=== PATIENT | male | born 1950 | race Caucasian/White ===

== ENCOUNTER → 2020-12-04 | Outpatient (CLI) | payer MEDICARE ==
[~2020-12-04] MED LIST: RT-ALBUTEROL SULF 2.5 MG/3 ML PRE-MIX VIAL INH ONE; TRAM100T PO
--- NOTE | 2020-12-04 14:02 | Diagnostic Imaging Report ---
EXAMINATION: CT Lung Screening. INDICATION: 53 pack year smoking history, presents for low-dose baseline screening. TECHNIQUE: Noncontrast, low-dose CT imaging performed according to the lung cancer screening protocol. Auto Exposure Controls were utilize during the CT exam to meet ALARA standards for radiation dose reduction. COMPARISON: Baseline. FINDINGS: There is symmetrical hyperexpansion of the lungs and air trapping. There are paraseptal cyst and emphysematous changes bilaterally, most pronounced in the right greater than left upper lobes. There is trace curvilinear subsegmental atelectasis in the posterior sulcal left lower lobe. There are no findings of pneumonia or pulmonary edema. No suspicious lung mass or findings of lung cancer. There is some mild right apical curvilinear pleural parenchymal scarring. There is no adenopathy. The thoracic aorta is nonaneurysmal. There is no pleural or pericardial effusion. There is a tiny hiatal hernia. IMPRESSION: Air trapping and paraseptal emphysema with no CT findings of active lung cancer. Continued low-dose CT screening followup in 1 year is recommended. LUNG-RADS CATEGORY:Category 1 MODIFIER:None OTHER SIGNIFICANT FINDINGS:None Dictated by: Dictated on workstation # [id number]
== END ==
LOC: RT 14:45
PROVIDERS: ATTEND Nurse Practitioner Family
DX: Z12.2 Encounter for screening for malignant neoplasm of respiratory organs (principal); J43.8 Other emphysema; F17.210 Nicotine dependence, cigarettes, uncomplicated
CPT/HCPCS: 71271; 94060; 94726; 94729